=== PATIENT | male | born 1990 | race Caucasian/White ===

== ENCOUNTER 2021-07-10 13:00 | Inpatient (IN) | payer BC, OTHER ==
[2021-07-10] MEDS ORDERED: IBUPROFEN 400 MG TABLET (FP) PO PRN (14:20)
[2021-07-10] MEDS ORDERED: MAGNESIUM CITRATE 300 ML BOTTLE PO PRN (14:20)
[2021-07-10] MEDS ORDERED: MAG HYDROX/AL HYDROX/SIMETH 30 ML UNIT-DOSE CUP PO PRN (14:20)
[2021-07-10] MEDS ORDERED: ACETAMINOPHEN 325 MG TABLET (FP) PO PRN ×2 (14:20)
[2021-07-10] MEDS ORDERED: MENTHOL/PHENOL 1 EACH UD MM PRN (14:20)
[2021-07-10] MEDS ORDERED: BISMUTH SUBSALICYLATE 262 MG/15 ML BTL PO PRN (14:20)
[2021-07-10] MEDS ORDERED: ONDANSETRON *ODT* 4 MG TABLET SL PRN (14:20)
[2021-07-10] MEDS ORDERED: MAGNESIUM HYDROX 2400MG/30ML ORAL SUSPENSION 30 ML CUP PO PRN (14:20)
[2021-07-10 14:37] VITALS: BMI 22.6
[2021-07-10] MEDS: diazePAM 5 MG TABLET PO SCH ×2 (18:01→23:01)
[2021-07-10] MEDS: hydrOXYzine PAMOATE 25 MG CAPSULE (FP) PO SCH ×2 (18:02→22:27)
[2021-07-10] MEDS: NICOTINE 10 MG CARTRIDGE (INHALER) IH PRN (18:40)
[2021-07-10] MEDS ORDERED: MELATONIN 5 MG TABLETS PO SCH (22:00)
[2021-07-10] MEDS: THIAMINE HCL 100 MG TABLET (FP) PO SCH (22:27)
[2021-07-11] MEDS: hydrOXYzine PAMOATE 25 MG CAPSULE (FP) PO SCH ×5 (05:44→22:25)
[2021-07-11] MEDS: diazePAM 5 MG TABLET PO SCH ×4 (05:44→23:00)
[2021-07-11] MEDS: NICOTINE 10 MG CARTRIDGE (INHALER) IH PRN ×4 (05:45→19:35)
[2021-07-11] MEDS: PRENATAL VITAMINS W/ FOLIC ACID TABLET (FP) PO SCH (10:30)
[2021-07-11] MEDS: METHOCARBAMOL 500 MG TABLET PO PRN (10:30)
[2021-07-11 12:12] LABS: HEMATOCRIT 39.1 % (35.4-49); HEMOGLOBIN 13.2 GM/dL (11.7-16.9); MCHC 33.8 g/dl (32.0-35.9); MEAN CELL VOLUME 91.5 fl (80-96); MEAN PLT VOLUME 8.6 fl (7.5-11.1); PLATELET COUNT 260 10^3/uL (134-434); RBC 4.28 M/mm3 (4.00-5.60); RDW 13.7 % (11.9-15.9)
[2021-07-11 12:21] LABS: ALBUMIN 3.9 g/dl (3.4-5.0); BLOOD UREA NITROGEN 9.5 mg/dL (7-18); CALCIUM 9.3 mg/dL (8.5-10.1)
[2021-07-11 12:24] LABS: CREATININE 0.7 mg/dL (0.55-1.3)
[2021-07-11 12:26] LABS: BILIRUBIN,TOTAL 0.6 mg/dL (0.2-1); TOT PROT 6.7 g/dl (6.4-8.2)
[2021-07-11] MEDS: diazePAM 5 MG TABLET PO PRN (15:25)
[2021-07-11] MEDS: THIAMINE HCL 100 MG TABLET (FP) PO SCH (22:25)
[2021-07-11] MEDS: SUVOREXANT 10 MG TABLET PO PRN (22:27)
[2021-07-12] MEDS: hydrOXYzine PAMOATE 25 MG CAPSULE (FP) PO SCH ×5 (05:30→22:12)
[2021-07-12] MEDS: diazePAM 5 MG TABLET PO SCH ×3 (05:30→22:11)
[2021-07-12] MEDS: METHOCARBAMOL 500 MG TABLET PO PRN ×4 (05:31→22:11)
[2021-07-12] MEDS: PRENATAL VITAMINS W/ FOLIC ACID TABLET (FP) PO SCH (10:20)
[2021-07-12] MEDS: NICOTINE 10 MG CARTRIDGE (INHALER) IH PRN ×2 (14:09→22:12)
[2021-07-12] MEDS: diazePAM 5 MG TABLET PO PRN (17:38)
[2021-07-12] MEDS: THIAMINE HCL 100 MG TABLET (FP) PO SCH (22:04)
[2021-07-12] MEDS: SUVOREXANT 10 MG TABLET PO PRN (22:13)
[2021-07-13] MEDS: diazePAM 5 MG TABLET PO SCH ×2 (05:43→17:09)
[2021-07-13] MEDS: hydrOXYzine PAMOATE 25 MG CAPSULE (FP) PO SCH ×5 (05:43→22:37)
[2021-07-13] MEDS: METHOCARBAMOL 500 MG TABLET PO PRN ×3 (05:44→19:01)
[2021-07-13] MEDS: diazePAM 5 MG TABLET PO PRN ×2 (10:24→15:16)
[2021-07-13] MEDS: PRENATAL VITAMINS W/ FOLIC ACID TABLET (FP) PO SCH (10:24)
[2021-07-13] MEDS: NICOTINE 10 MG CARTRIDGE (INHALER) IH PRN ×2 (10:25→17:05)
[2021-07-13] MEDS: THIAMINE HCL 100 MG TABLET (FP) PO SCH (22:37)
[2021-07-13] MEDS: SUVOREXANT 10 MG TABLET PO PRN (22:37)
[2021-07-14] MEDS: hydrOXYzine PAMOATE 25 MG CAPSULE (FP) PO SCH (05:43)
[2021-07-14] MEDS: METHOCARBAMOL 500 MG TABLET PO PRN (05:43)
[2021-07-14] MEDS ORDERED: diazePAM 5 MG TABLET PO ONE (06:00)
[2021-07-14 07:36] VITALS: BP 116/60; PULSE 61; TEMP 98
== END 2021-07-14 09:47 | disposition home or self-care (01) | DRG 775 ==
LOC: YASAS 13:00 → Y6N 14:57
PROVIDERS: ADMIT Allergy & Immunology; ATTEND Allergy & Immunology
PROC: HZ2ZZZZ Detoxification Services for Substance Abuse Treatment (ICD-10-PCS; principal; 2021-07-10)
DX: F10.230 Alcohol dependence with withdrawal, uncomplicated (principal); F13.230 Sedative, hypnotic or anxiolytic dependence with withdrawal, uncomplicated; F17.210 Nicotine dependence, cigarettes, uncomplicated; F90.9 Attention-deficit hyperactivity disorder, unspecified type; F43.10 Post-traumatic stress disorder, unspecified; F41.9 Anxiety disorder, unspecified; F19.282 Other psychoactive substance dependence with psychoactive substance-induced sleep disorder; F19.280 Other psychoactive substance dependence with psychoactive substance-induced anxiety disorder; Z62.810 Personal history of physical and sexual abuse in childhood; Z88.6 Allergy status to analgesic agent; Z91.51 Personal history of suicidal behavior; Z56.0 Unemployment, unspecified
CPT/HCPCS: 36415; 80053; 85027; 86780; C9803; U0003; U0005